=== PATIENT | female | born 1970 | race Caucasian/White ===

== ENCOUNTER 2017-09-29 15:29 | Day surgery (SDC) | payer OTHER ==
--- NOTE | 2017-09-12 06:23 | HP ---
CC: Marco Antonio Claudio MD, [facility] * HISTORY AND PHYSICAL: DATE OF ADMISSION/SURGERY: 09/29/17 PRIMARY CARE PHYSICIAN: Cass Blackwell MD ATTENDING SURGEON: Santos Laguna MD * (DICTATED BY KIM LOPEZ) CHIEF COMPLAINT: Recurrent metastatic melanoma. HISTORY OF PRESENT ILLNESS: Ms. Murphy is a pleasant 47-year-old female who is well known to our practice from prior excision of melanoma. 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 She eventually underwent wide excision of melanoma on her right upper back with sentinel lymph node dissection of the right axilla. She has been followed by the hematology/ oncology group, seeing Dr. Claudio on a regular basis. She has been seen by the oncology group and scheduled CT alternating with a PET scan to monitor her progress. She has been maintained on the chemotherapy for which she gets an infusion every 3 weeks. She reports being in her usual state of health and denies any constitutional symptoms recently. She had a recent PET scan that unfortunately revealed an enlarged lymph node in the right axilla. That was followed by fine needle aspiration of the lymph node that revealed metastatic melanoma. The patient was referred back to our office to discuss excision of lymph node. She has been doing extremely well otherwise and denies any fever, chills, night sweats or recent weight loss. She denies any skin changes, axillary swelling. She has a history of DVT on 2 separate occasions for which she started initially on warfarin that was changed to Xarelto which she has been taking on a regular basis. She denies any ankle swelling or shortness of breath. She was seen in the office today by Dr. Laguna and her PET scan was reviewed as well as the pathology report from the fine needle aspiration and recommendation was made for her to undergo an excision of right axillary lymph node in the operating room later this month. PAST MEDICAL HISTORY: As mentioned above. The patient has history of metastatic melanoma for which she had a wide excision as well as sentinel lymph node biopsy back in January 2016. She also had another excision done that was found to be melanoma of the lower right back. She also had history of morbid obesity and DVT. PAST SURGICAL HISTORY: As mentioned above. Significant for wide excision of melanoma of the right upper back at [facility] with sentinel lymph node biopsy that initially was negative. She has also had another melanoma excised from the right lower back. She is also status post a laparoscopic sleeve gastrectomy back in April 2016. She also had a minor varicose vein surgery and a laparoscopic cholecystectomy in the remote past. CURRENT MEDICATIONS: Her medications at home include: 1. Citalopram 40 mg p.o. daily. 2. Keytruda 100 mg 1 IV infusion every 3 weeks. 3. Calcium citrate 250 mg once daily. 4. Biotin 1000 mcg once a day. 5. Bryant chewable multivitamin once daily. 6. Xarelto 20 mg once daily. ALLERGIES: She has no known drug allergies. FAMILY HISTORY: She denies any family history of melanoma or colorectal malignancies. SOCIAL HISTORY: The patient denies smoking. She drinks wine rarely and caffeine intake is minimal. REVIEW OF SYSTEMS: See HPI, otherwise negative. She denies any headache, dizziness, blurred vision or double vision. No sore throat, cough, wheezing or shortness of breath. She denies any abdominal pain, hernias, back pain, hematuria, dysuria or urinary frequency. No fever, chills, night sweats or recent weight loss. PHYSICAL EXAMINATION GENERAL: She is a pleasant healthy-appearing middle aged female, in no acute distress or discomfort at her visit today. VITAL SIGNS: Her vitals revealed blood pressure 110/70, pulse 84, respirations of 18 and temperature 98.7. HEENT: Sclerae anicteric. PERRLA. EOM's intact. Oropharynx is pink and moist with no exudate. NECK: Supple. Trachea midline. No cervical adenopathy or thyromegaly. LUNGS: Clear to auscultation bilaterally. HEART: Regular rate and rhythm. Normal S1 and S2 without rubs, murmurs or gallops. BACK: Normal curvature. No CVA tenderness. There is a large well-healed scar at the right upper back from prior wide excision and sentinel lymph node biopsy back in January 2016. There is also a smaller scar on the right lower back from prior melanoma excision as an outpatient. There is different colored freckles noted in her upper shoulders, but nothing suspicious for a dysplastic nevi at this time. BREASTS: Exam deferred at this time. AXILLA: Right axilla was examined. There was no palpable lymphadenopathy noted. ABDOMEN: Soft, nontender, nondistended. No hernia, masses or hepatosplenomegaly. RECTAL: Exam deferred at this time. NEUROLOGIC: Grossly intact. IMPRESSION: A 47-year-old female with a positive recent PET scan for right axillary lymphadenopathy with history of metastatic malignant melanoma. PLAN: The patient was seen earlier today by Dr. Laguna. He advised her to undergo an excision of right axillary lymph node be performed at a later date. The rationale, indication, risks and benefits of surgery were discussed with her today. Risks include but not limited to infection, bleeding or injury to adjacent structures. She seems to understand and wishes to proceed as outlined. Given her history of deep venous thrombosis on 2 separate occasions, we will hold her Xarelto only for 24 hours prior to surgery, and we will follow her up accordingly. KIM LOPEZ [id number]/[facility] #: [id number] MAGALY
[~2017-09-29 15:29] MED LIST: Buffered Lidocaine 0.9% SYRIN* 5 ML/SYR SYRINGE INTRADERM ONE; Famotidine IV* 10 MG/ML 2 ML (20 mg) IV ONE
[2017-09-29] MEDS ORDERED: ceFAZolin 2 GM PREMIX (*) 2 GM/50 ML BAG IVPB ONE (15:33)
[2017-09-29] MEDS ORDERED: Famotidine IV* 10 MG/ML 2 ML (20 mg) ONE (15:33)
[2017-09-29] MEDS ORDERED: Heparin VIAL(*) 5000 UNITS/ML VIAL (FIVE THOUSAND) ONE (16:50)
[2017-09-29] MEDS ORDERED: Lidocaine 2% PF * 5 ML VIAL ONE (17:40)
[2017-09-29] MEDS ORDERED: Propofol* 10 MG/ML 20 ML BTL IV PUSH ONE (17:40)
[2017-09-29] MEDS ORDERED: Ondansetron INJ* 2 MG/ML VIAL ONE (17:40)
[2017-09-29] MEDS ORDERED: Ketorolac INJ* 30 MG/ML 1 ML VIAL ONE (17:40)
[2017-09-29] MEDS ORDERED: fentaNYL* 50 MCG/ML 2 ML VIAL (100 MCG VIAL) ONE (17:41)
[2017-09-29] MEDS ORDERED: Midazolam* 1 MG/ML 5 ML VIAL (5 MG) ONE (17:41)
[2017-09-29] MEDS ORDERED: Dexamethasone IV* 4 MG/ML 1 ML (4 MG) ONE (18:26)
[2017-09-29] MEDS ORDERED: Bupivacaine 0.25% SDV* 30 ML ONE (18:28)
[2017-09-29] MEDS ORDERED: Lidocaine 1% MPF wEPI 200,000* 30 ML SDV ONE (18:28)
[2017-09-29] MEDS ORDERED: fentaNYL* 50 MCG/ML 2 ML VIAL (100 MCG VIAL) IV PRN (19:12)
[2017-09-29] MEDS ORDERED: Ondansetron INJ* 2 MG/ML VIAL IV PRN (19:12)
[2017-09-29] MEDS ORDERED: Naloxone* 0.4 MG/ML 1 ML VIAL IV PRN (19:12)
[2017-09-29] MEDS ORDERED: oxyCODONE/Acetamin 5/325 MG* TAB PO PRN (19:12)
[2017-09-29 21:37] VITALS: BP 120/74
--- NOTE | 2017-09-30 12:49 | OP ---
CC: Dr. Santos Laguna; Dr. Collier; Dr. Blackwell; Dr. Claudio OPERATIVE REPORT: DATE OF OPERATION: 09/29/17 DATE OF : 66 SURGEON: Santos Laguna MD TORCH SOLDERER: Dulce España NP ANESTHESIOLOGIST: Andreas Willoughby MD ANESTHESIA: General anesthetic, local infiltration. PRE-OP DIAGNOSIS: Melanoma metastatic to axillary lymph nodes. POST-OP DIAGNOSIS: Melanoma metastatic to axillary lymph nodes. OPERATIVE PROCEDURE: Excision of right axillary lymph nodes. DESCRIPTION OF PROCEDURE: The patient was supine on the operating room table. After adequate general anesthetic, compression stockings, Lana Hugger warmer, and intravenous antibiotics, the right axilla was prepped with antiseptic and draped in a sterile fashion. Local infiltrative anesthesia was admi nistered. Approximately, a 5-cm incision was created and dissection carried down into the axillary t issue. There was little bit of scarring from the previous surgery, but it was not too bad. There was a large node of about 2.5 cm, which seemed to correspond to the area seen on CT scan and on the PET s can. This was somewhat adherent on to the thoracodorsal neurovascular bundle, but was taken off with out difficulty. Small branches were clipped and divided and the lymph node was sent in formalin for pathological evaluation. There were two other lymph nodes that were nearby that were somewhat enlarg ed and maybe slightly pigmented, so it was felt prudent to remove these as well. No other enlarged l ymph nodes could be identified. Hemostasis was good. Closure was accomplished using 3-0 and 5-0 Vicr yl followed by Steri-Strips. She tolerated the procedure well, was awakened, and brought to Recovery in good condition. No complications. No drains. Pathologic specimen as above. Sponge and instrum ent counts correct. Estimated blood loss less than 30 mL. [id number]/[facility] #: [id number]
== END 2017-09-29 20:54 | disposition home or self-care (01) ==
LOC: OR 15:29
PROVIDERS: ATTEND Surgery
DX: C77.3 Secondary and unspecified malignant neoplasm of axilla and upper limb lymph nodes (principal); C43.59 Malignant melanoma of other part of trunk; Z86.718 Personal history of other venous thrombosis and embolism; Z79.01 Long term (current) use of anticoagulants; F41.9 Anxiety disorder, unspecified; Z86.711 Personal history of pulmonary embolism
CPT/HCPCS: 81025; 88305; J0690; J1100; J1644; J1885; J2001; J2250; J2405; J2704; J3010

== ENCOUNTER 2017-11-10 06:15 | Day surgery (SDC) | payer OTHER ==
[~2017-11-10 06:15] MED LIST changes: +Famotidine IV* 10 MG/ML 2 ML (20 mg) ONE; +ceFAZolin 2 GM PREMIX (*) 2 GM/50 ML BAG IVPB ONE
[2017-11-10] MEDS ORDERED: Lidocaine 1% INJ* 10 MG/ML 30 ML SDV ONE (06:58)
[2017-11-10] MEDS ORDERED: Dexamethasone IV* 4 MG/ML 1 ML (4 MG) ONE (07:10)
[2017-11-10] MEDS ORDERED: Propofol* 10 MG/ML 20 ML BTL IV PUSH ONE (07:10)
[2017-11-10] MEDS ORDERED: Lidocaine 2% PF * 5 ML VIAL ONE (07:10)
[2017-11-10] MEDS ORDERED: fentaNYL* 50 MCG/ML 2 ML VIAL (100 MCG VIAL) ONE (07:11)
[2017-11-10] MEDS ORDERED: Midazolam* 1 MG/ML 5 ML VIAL (5 MG) ONE (07:11)
[2017-11-10] MEDS ORDERED: Midazolam* 1 MG/ML 2 ML VIAL (2 MG) ONE (07:37)
[2017-11-10] MEDS ORDERED: Ondansetron ODT TAB* 4 MG PO PRN (08:05)
[2017-11-10] MEDS ORDERED: Naloxone* 0.4 MG/ML 1 ML VIAL IV PRN (08:05)
[2017-11-10] MEDS ORDERED: oxyCODONE/Acetamin 5/325 MG* TAB PO PRN (08:05)
[2017-11-10] MEDS ORDERED: fentaNYL* 50 MCG/ML 2 ML VIAL (100 MCG VIAL) IV PRN (08:05)
[2017-11-10] MEDS ORDERED: Ibuprofen TAB* 600 MG PO ONE (08:28)
--- NOTE | 2017-11-10 08:57 | RAD ---
INDICATION: chest port placement COMPARISONS: None relevant TECHNIQUE: Fluoroscopy was provided for a vascular access procedure. Total fluoroscopy time is: 8 seconds FINDINGS: A single spot image demonstrates a right-sided chest port from a subclavian approach with the tip overlying the cavoatrial junction. IMPRESSION: FLUOROSCOPY WAS PROVIDED FOR A VASCULAR ACCESS PROCEDURE CPT II Codes: G9500
--- NOTE | 2017-11-10 08:59 | RAD ---
INDICATION: Central venous catheter placement COMPARISON: None TECHNIQUE: An AP portable view obtained at 0828 hours is submitted. FINDINGS: Bones/Soft Tissues: There are no acute bony findings. There is a right-sided Vxfjsr-b-Bevs catheter terminating in the superior vena cava. There clips right axillary region Cardiomediastinal: The cardiomediastinal silhouette is normal. Lungs: There are no infiltrates. There is no pneumothorax. Pleura: There are no pleural effusions. Other: None IMPRESSION: RIGHT-SIDED CENTRAL VENOUS CATHETER IN EXPECTED POSITION. LUNGS CLEAR.
[2017-11-10 09:02] VITALS: BP 116/74
--- NOTE | 2017-11-10 12:02 | OP ---
CC: Dr. Laguna; [facility] OPERATIVE REPORT: DATE OF OPERATION: 11/10/17 DATE OF : 66 SURGEON: Santos Laguna MD PORTABLE SAWMILL OPERATOR: None. ANESTHESIOLOGIST: Dr. Willoughby. ANESTHESIA: LMAC anesthesia. PRE-OP DIAGNOSIS: Melanoma. POST-OP DIAGNOSIS: Melanoma. OPERATIVE PROCEDURE: Placement of right subclavian 8-Romansh port. DESCRIPTION OF PROCEDURE: Patient was supine on the operating table. After adequate intravenous sed ation, compression stockings, Lana Hugger warmer and intravenous antibiotics, the chest and neck sanjuanita on were prepped with antiseptic, draped in a sterile fashion. Local infiltrative anesthesia was admi nistered and right subclavian incision was created approximately 3 cm in length. Inferior pocket was created. Subclavian venipuncture carried out and guidewire passed under fluoroscopic guidance. Cat heter passed through the peel-away introducer, measured and cut at 23 cm, attached to the port, which was sutured in the pocket with 2-0 Prolene. Pocket closed with 3-0 and 5-0 Vicryl followed by Steri -Strips. The port has good blood return and is flushed with saline and heparinized solution. The pa tient is brought to recovery in good condition. No complications. No drains. No pathologic specimen . Sponge and instrument counts correct. Estimated blood loss 5 mL. [id number]/[facility] #: [id number]
== END 2017-11-10 09:21 | disposition home or self-care (01) ==
LOC: OR 06:15
PROVIDERS: ATTEND Surgery
DX: C43.59 Malignant melanoma of other part of trunk (principal); C77.3 Secondary and unspecified malignant neoplasm of axilla and upper limb lymph nodes; Z86.718 Personal history of other venous thrombosis and embolism; Z86.711 Personal history of pulmonary embolism; Z79.01 Long term (current) use of anticoagulants; F41.9 Anxiety disorder, unspecified
CPT/HCPCS: 71045; 76000; 81025; C1788; J0690; J1100; J1642; J2250; J2704; J3010

== ENCOUNTER 2019-10-18 12:40 | Emergency (ER) | payer OTHER ==
[2019-10-18 12:52] VITALS: BP 142/70
--- NOTE | 2019-10-18 13:02 | UC ---
General HPI - HPI Summary HPI Summary: Here with left sided chest pain Last week - developed pain in her back behind shoulder blade, under left breast. Most severe with taking a deep breath. initially thought she pulled a muscle. Few days it got better, still there and with deep breath No shortness of breath. Avoiding taking deep breaths because it hurts. No fever No cough No ALAS No N/V/D Denies any exertional activity trying to reach under the couch to get her dogs ball PMHx Melanoma - Dr. Claudio - finished two year course of Ktruda in 04/14 Scans scheduled for October. Three month derm checks. Not active treatment Hx of PE - 15 years ago. Has been on Xarelto since - recently - last refill reduced xarelto 40 mg down to 20 mg daily. Has been on 20 mg dose for about a month. - History of Current Complaint Chief Complaint: UCChestPain Stated Complaint: LEFT SIDE CHEST/BACK PAIN Time Seen by Provider: 10/18/19 12:50 Pain Intensity: 7 - Allergy/Home Medications Allergies/Adverse Reactions: Allergies Allergy/AdvReac Type Severity Reaction Status Date / Time No Known Allergies Allergy Verified 10/18/19 12:48 Home Medications: Home Medications Citalopram TAB* [Celexa TAB*] 40 mg PO QPM 11/02/12 [History Confirmed 10/18/19] Rivaroxaban TAB(*) [Xarelto 20 mg] 20 mg PO QPM 03/29/16 [History Confirmed ] Multivit-Minerals/Folic Acid [Multivitamin Gummies Wome] 1 chw PO DAILY [History Confirmed 10/18/19] Calcium Citrate TAB* [Citracal TAB*] 1 tab PO DAILY 09/23/17 [History Confirmed 10/18/19] Cholecalciferol (Vitamin D3) [Vitamin D3] 2,000 units PO DAILY 09/23/17 [ History Confirmed 10/18/19] Cyanocobalamin TAB* [Vitamin B12 TAB*] 1,000 mcg PO DAILY 09/23/17 [History Confirmed 10/18/19] PMH/Surg Hx/FS Hx/Imm Hx Previously Healthy: Yes Cancer History: Other - melanoma Other History Of: Anticoagulant Therapy - coumadin for PE - Surgical History Surgical History: Yes Surgery Procedure, Year, and Place: WIDE EXCISION SKIN MELANOMA RIGHT UPPER BACK -[facility]-02/09. GALLBLADDER [id number]. POWER PORT. GASTRIC BYPASS 04/2016. LYMPH NODE REMOVAL -Rt AXILLARY. VERICOSE VEIN STRIPPING - Social History Alcohol Use: Occasionally Alcohol Amount: 1-2 per month Substance Use Type: None Smoking Status (MU): Never Smoked Tobacco Amount Used/How Often: 0.5-1 PPD X 5-6 YEARS Have You Smoked in the Last Year: No When Did the Patient Quit Smoking/Using Tobacco: 1998 - Immunization History Most Recent Influenza Vaccination: HAS NOT HAD Most Recent Tetanus Shot: UP TO DATE? Most Recent Pneumonia Vaccination: HAS NOT HAD Review of Systems All Other Systems Reviewed And Are Negative: Yes Cardiovascular: Positive: Chest Pain Physical Exam Triage Information Reviewed: Yes Appearance: Well-Appearing Vital Signs: Initial Vital Signs Temp 98.2 F 10/18/19 12:45 Pulse 64 10/18/19 12:45 Resp 16 10/18/19 12:45 BP 142/70 10/18/19 12:45 Pulse Ox 100 10/18/19 12:45 Vital Signs Reviewed: Yes Eyes: Positive: Conjunctiva Clear Neck: Positive: Supple Respiratory: Positive: Lungs clear, Normal breath sounds, Decreased breath sounds Cardiovascular: Positive: RRR, No Murmur Musculoskeletal: Positive: Other: - no reproducible tenderness Skin Exam: Other - no rash or lesion in area Course/Dx - Course Course Of Treatment: This is a 49 with PMhx of Melanoma not currently on treatment, recently lowered dose of xarelto presents with pleuritc pain, concern for a PE Vitals stable. EKG: NSR Recommend going directly to the ER - patient would like to go to [facility] for CTA Sign out given to Dr. Mancini Plan REcommend going directly to [facility] for CT angiogram of the chest to rule out a pulmonary embolism - Diagnoses Provider Diagnosis: Pleuritic chest pain Discharge ED - Sign-Out/Discharge Documenting (check all that apply): Patient Departure All imaging exams completed and their final reports reviewed: No Studies - Discharge Plan Condition: Fair Disposition: HOME-RECOMMEND TO ED Referrals: Cass Blackwell MD [Primary Care Provider] - Additional Instructions: REcommend going directly to [facility] for CT angiogram of the chest to rule out a pulmonary embolism - Billing Disposition and Condition Condition: FAIR Disposition: Home-Recommend to ED
--- OUTSIDE RECORDS SUMMARY | 2019-10-18 13:21 | XMS REPORT | Summary of Care ---
:1970 Author Organization [facility] Address [address] [facility] [place] [address] Care Team Providers Name Role Phone Cass Blackwell Primary Care Provider Reason for Visit Reason Comments Annual Well Visit Depression Encounter Details Date Type Department Care Team Description 10/01/2019 Office Visit [place] [facility] Cass Blackwell MD Depression, unspecified depression type (Primary Dx); Medicine [address] Malignant melanoma of back (HCC); [address] [place] [address] [place] [address] [phone] Allergies No Known Allergiesdocumented as of this encounter (statuses as of 10/01/2019) Medications Medication Sig Dispensed Refills Start Date End Date Status XARELTO 20 MG Oral take 1 tablet by 30 Tab 0 02/07/2017 Active TabIndications: Deep mouth once daily vein thrombosis (DVT) ([facility]), Other pulmonary embolism without acute cor pulmonale, unspecified chronicity ([facility]) Cholecalciferol Take by mouth. 0 Active (VITAMIN D3) 50 MCG (1999 UT) Oral Tab Cyanocobalamin Place under tongue. 0 Active (VITAMIN B-12) 1000 MCG Sublingual SL Tab Calcium 250 MG Oral Take by mouth. 0 Active Cap calciumcitrate 250mg citalopram (CELEXA) take 1 tablet by 30 Tab 0 09/03/2019 Active 40 MG Oral mouth once daily TabIndications: Depression, unspecified depression type citalopram (CELEXA) Take 1 Tab by mouth 90 Tab 3 10/01/2019 Active 20 MG Oral DAILY. Take 1/2 TabIndications: daily for 1 week Depression, then increase to 1 unspecified pill daily depression type documented as of this encounter (statuses as of 10/01/2019) Active Problems Problem Noted Date Family history of malignant neoplasm of digestive organs 05/07/2019 Other thrombophilia 05/07/2019 Urinary incontinence 05/07/2019 Excessive and frequent menstruation with regular cycle 05/07/2019 Depression 07/25/2018 Overview: Has tried on half dose- Will try again 07/15 Bariatric surgery status 07/25/2018 Overview: Sleeve- Cancer Survivorship 03/17/2016 Malignant melanoma of back 12/25/2015 Overview: Oncologic Diagnosis: Melanoma of Right Upper Back Date of Diagnosis: November 2015 Stage at Diagnosis: IIB Treatment to Date: 12/2015: Wide Excision of Melanoma Right Upper Back and B[place] Lymph Node Biopsy (-) Survivorship visit completed 03/17/2016 Anticoagulant long-term use 11/19/2015 BMI 50.0-59.9, adult 07/29/2015 Pulmonary embolism Overview: 2006 No underlying hypercoag But mantained on anticoag - Dr Claudio oversees - DVT (deep venous thrombosis) Overview: 2002 and 2006 First episode was on bcp - Second episode - Within 30 days of vein surgery - Has seen hematology and recommends life long anticoag documented as of this encounter (statuses as of 10/01/2019) Resolved Problems Problem Noted Date Resolved Date Malignant melanoma of skin 02/10/2016 03/17/2016 documented as of this encounter (statuses as of 10/01/2019) Social History Tobacco Use Types Packs/Day Years Used Date Former Smoker Quit: 06/27/1999 Smokeless Tobacco: Never Used Alcohol Use Drinks/Week oz/Week Comments Yes 1 Glasses of wine 1.0 Sex Assigned at Date Recorded Not on file documented as of this encounter Last Filed Vital Signs Not on filedocumented in this encounter Progress Notes Cass Blackwell MD - 10/01/2019 11:40 AM EDT NAME:Ronda Murphy 1970: 1970 ENC Date: 10/01/2019 CC:No chief complaint on file. Ronda Murphy is a 49-y.o. female Patient not seen by me since 07/15 - Diagnosed with maglignant melanoma with reoccurrence - following with oncology office - sees dermatology and oncology every 3 months- 2. History of depression- last seen was on clelexa for panic symptoms - which she continues she tried to get off but was not ablelast yr - and has run ou and had withdrawal effectcs - would like to consider reduction in dose again- 3. History of pulmonary embolis - / DVT - has been tested for presence of procoag condition and none was found - Dr Shanon spence - And has reduced the dose- Is considering weaning off medication - 4. History of bariatric surgery- discussed need for annual Current Outpatient Medications Medication Sig ? Calcium 250 MG Oral Cap Take by mouth. calciumcitrate 250mg ? Cholecalciferol (VITAMIN D3) 50 MCG (2000 UT) Oral Tab Take by mouth. ? citalopram (CELEXA) 20 MG Oral Tab Take 1 Tab by mouth DAILY. Take 1/2 daily for 1 week thenincrease to 1 pill daily ? citalopram (CELEXA) 40 MG Oral Tab take 1 tablet by mouth once daily ? Cyanocobalamin (VITAMIN B-12) [address] Tab Place under tongue. ? XARELTO 20 MG Oral Tab take 1 tablet by mouth once daily No current facility-administered medications for this visit. Patient Active Problem List Diagnosis Date Noted ? Family history of malignant neoplasm of digestive organs 05/07/2019 ? Other thrombophilia (HCC) 05/07/2019 ? Urinary incontinence 05/07/2019 ? Excessive and frequent menstruation with regular cycle 05/07/2019 ? Depression 07/25/2018 Has tried on half dose- Will try again 07/15 ? Bariatric surgery status 07/25/2018 Sleeve- ? Cancer Survivorship 03/17/2016 ? Malignant melanoma of back 12/25/2015 Oncologic Diagnosis: Melanoma of Right Upper Back Date of Diagnosis: November 2015 Stage at Diagnosis: IIB Treatment to Date: 12/2015: Wide Excision of Melanoma Right Upper Back and B[place] Lymph Node Biopsy (-) Survivorship visit completed 03/17/2016 ? Anticoagulant long-term use 11/19/2015 ? BMI 50.0-59.9, adult (HCC) 07/29/2015 ? Pulmonary embolism (HCC) 2006 No underlying hypercoag But mantained on anticoag - Dr Claudio oversees - ? DVT (deep venous thrombosis) (HCC) 2002 and 2006 First episode was on bcp - Second episode - Within 30 days of vein surgery - Has seen hematologyand recommends life long anticoag Family History Problem Relation Age of Onset ? Cancer Mother 62 esophogeal ? Alcohol/Drug Mother ? Cancer Father 75 lung cancer ? Ovarian Cancer Maternal Grandmother 74 No cardiopulmonary symptoms No upper or lower GI complaints No urinary tract symptoms. No bruising/ bleeding. No neurological complaints . No insomnia.+ . Social History Tobacco Use ? Smoking status: Former Smoker Last attempt to quit: 06/27/1999 Years since quittin.2 ? Smokeless tobacco: Never Used Substance Use Topics ? Alcohol use: Yes Alcohol/week: 1.0 standard drinks Types: 1 Glasses of wine per week ? Drug use: No OBJECTIVE: There were no vitals taken for this visit.. A/P ICD-9-CM ICD-10-CM 1. Depression, unspecified depression type 311 F32.9 citalopram (CELEXA) 20 MG Oral Tab 2. Malignant melanoma of back (HCC) 172.5 C43.59 3. Bariatric surgery status V45.86 Z98.84 There are no Patient Instructions on file for this visit. In our efforts to minimize the spread of COVID-19 in our community, amongst our patients, healthcarestaff and providers, we have implemented virtual visits with our patients. No vital signs, physical exam or in-office diagnostics were completed during this visit. These items may be accomplished during subsequent visits. AUTHOR: Cass Blackwell MD 11:56 10/01/2019 documented in this encounter Plan of Treatment Health Maintenance Due Date Last Done Comments CT Colonography 1970 Cologuard 1970 FIT/FOBT 1970 Sigmoidoscopy 1968 DTaP/Tdap/Td Vaccines (1 - 1979 Tdap) DEPRESSION SCREENING 1980 PAP SMEAR 1989 DIABETES SCREENING 01/13/2017 01/14/2016, 01/14/2016, 08/01/2015 ZOSTER IMMUNIZATION SERIES (1 2018 of 2) INFLUENZA VACCINE (Season 02/26/2020 Ended) MAMMOGRAM (SCREENING) 05/18/2020 05/18/2019, 05/18/2019, 11/16/2016 LIPID DISORDER SCREENING 08/01/2020 08/01/2015 Colonoscopy 07/03/2029 07/03/2019 Colorectal Cancer Screening 07/03/2029 HEPATITIS A IMMUNIZATION Aged Out No longer eligible based SERIES on patient's age to complete this topic HPV IMMUNIZATION SERIES Aged Out No longer eligible based on patient's age to complete this topic MENINGOCOCCAL VACCINE IMM Aged Out No longer eligible based on patient's age to complete this topic PNEUMOCOCCAL 0-64 YRS Aged Out No longer eligible based on patient's age to complete this topic documented as of this encounter Goals Goal Patient Goal Associated Recent Patient-Stated? Author Type Problems Progress Cancer Cancer Cancer No Myrna, Survivorship Care Survivorship Carl Marroquin PA-C Note: Survivorship Treatment Summary - Melanoma Stage IIB [facility] Stage IIB T4a Cancer Care Team: Surgeon: Dr. Huntley Surgical Physician Molecular Spectroscopist: Cara Norris PA-C Diagnosis and Staging : Date of diagnosis: November 2015 Primary site: Right Upper Back Clinical stage : T4s Surgery: Date: 01/26/16 Surgery: Wide excision, malignant melanoma of the right shoulder/back. Right axillary sentinel node biopsy. ? FOLLOW UP PLAN Post Treatment Surveillance Recommendations: - Follow up with Surgical Oncology every 6 months for 2 years then - Annually for Lifetime - Screening imaging every 6-[address] PET/CT for 2- 5 years - Establish care or Continue current visits with Environmental Analyst for Total Body Skin Exams every 3-6 months for 2 years following diagnosis. - Any unusual or changing skin lesions should be brought to the attention of your Dermatology Provider. - You may contact our office with concerning lesions for possible biopsy though this does not replace annual Total Body Skin Exams. - Routine blood tests are not recommended. PREVENTIVE HEALTH & CANCER SCREENING: -Maintain yearly appointments with PCP. Schedule of follow up Clinic Visits: - Surgical Oncology Dr. Huntley/Cara Norris PA-C [address] Surgical Oncology [place] [id number] - Dermatology [place] to Schedule Cara Norris PA-C documented as of this encounter Results Not on filedocumented in this encounter Visit Diagnoses Diagnosis Depression, unspecified depression type Malignant melanoma of back (HCC) Malignant melanoma of skin of trunk, except scrotum Bariatric surgery status documented in this encounter Insurance Payer Benefit Plan / Subscriber ID Effective Dates Phone Address Type Group [employer]CIAL [employer] [id number] 2012-Present [employer] Guarantor Name Account Type Relation to Date of Phone Billing Patient Address Ronda Murphy Personal/Family 1970 [id number] (Home) [place], [place] [phone] [id number] (Work) documented as of this encounter
== END 2019-10-18 13:21 | disposition home health service (06) ==
LOC: UCCORT 12:40
DX: R07.81 Pleurodynia (principal); Z86.711 Personal history of pulmonary embolism; Z79.01 Long term (current) use of anticoagulants; Z87.891 Personal history of nicotine dependence
CPT/HCPCS: 99212; G0463

== ENCOUNTER 2019-10-18 14:05 | Emergency (ER) | payer OTHER ==
--- NOTE | 2019-10-18 14:32 | ED ---
HPI Chest Pain - HPI Summary HPI Summary: 49-year-old female presents to the emergency department today with a chief complaint of left anterior chest pain 3 days which she describes as being located "occasionally in my left arm and left chest area" with associated shortness of breath due to pain with inspiration. Patient has a significant past medical history of myeloma however she has not received chemotherapy or radiation for years. Patient is followed by Dr. Claudio. Patient endorses a positive past medical history of blood clots and is currently on anticoagulation. Patient denies recent surgery, immobilization, long distance travel. She denies use of exogenous estrogen. Patient is otherwise well and denies fevers, abdominal pain, nausea, vomiting, diarrhea. Patient is being sent here from urgent care with concerns for possible blood clot. - History of Current Complaint Chief Complaint: EDShortnessOfBreath Time Seen by Provider: 10/18/19 14:17 Hx Obtained From: Patient Onset/Duration: Started Days Ago Timing: Constant Initial Severity: Mild Current Severity: Mild Pain Intensity: 4 Pain Scale Used: 0-10 Numeric Chest Pain Location: Left Anterior Chest Pain Radiates: No Character: Pressure/Squeezing Aggravating Factor(s): Deep Breaths Associated Signs and Symptoms: Positive: Shortness of Breath. Negative: Cough, Productive Cough, Nonproductive Cough - Additional Pertinent History Primary Care Physician: [id number] - Allergy/Home Medications Allergies/Adverse Reactions: Allergies Allergy/AdvReac Type Severity Reaction Status Date / Time No Known Allergies Allergy Verified 10/18/19 14:10 Home Medications: Home Medications Citalopram TAB* [Celexa TAB*] 20 mg PO DAILY 11/02/12 [History Confirmed ] Rivaroxaban TAB(*) [Xarelto 20 mg] 20 mg PO DAILY 03/29/16 [History Confirmed ] Multivit-Minerals/Folic Acid [Multivitamin Gummies Wome] 1 chw PO DAILY [History Confirmed 10/18/19] Calcium Citrate TAB* [Citracal TAB*] 1 tab PO DAILY 09/23/17 [History Confirmed 10/18/19] Cholecalciferol (Vitamin D3) [Vitamin D3] 2,000 units PO DAILY 09/23/17 [ History Confirmed 10/18/19] Cyanocobalamin TAB* [Vitamin B12 TAB*] 1,000 mcg PO DAILY 09/23/17 [History Confirmed 10/18/19] PMH/Surg Hx/FS Hx/Imm Hx Endocrine/Hematology History: Reports: Hx Anticoagulant Therapy - coumadin for PE Denies: Hx Diabetes Cardiovascular History: Reports: Other Cardiovascular Problems/Disorders - LEFT LEG DVT-~1999 Denies: Hx Hypertension, Hx Pacemaker/ICD Respiratory History: Reports: Hx Pulmonary Embolism - 2004- CURRENTLY ON XARELTO , Hx Sleep Apnea, Other Respiratory Problems/Disorders - PE - ON COUMADIN Denies: Hx Asthma GI History: Denies: Other GI Disorders History: Denies: Hx Renal Disease Musculoskeletal History: Denies: Other Musculoskeletal History Sensory History: Reports: Hx Contacts or Glasses - GLASSES Denies: Hx Hearing Aid Opthamlomology History: Reports: Hx Contacts or Glasses - GLASSES Neurological History: Denies: Other Neuro Impairments/Disorders Psychiatric History: Reports: Hx Anxiety - on meds Denies: Hx Panic Disorder - Cancer History Cancer Type, Location and Year: MELANOMA Hx Chemotherapy: Yes Hx Radiation Therapy: No Hx Palliative Cancer Treatment: No - Surgical History Surgery Procedure, Year, and Place: WIDE EXCISION SKIN MELANOMA RIGHT UPPER BACK -KHRIS-02/09. GALLBLADDER [id number]. POWER PORT. GASTRIC BYPASS 04/2016. LYMPH NODE REMOVAL -Rt AXILLARY. VERICOSE VEIN STRIPPING Hx Anesthesia Reactions: No Infectious Disease History: No Infectious Disease History: Denies: Traveled Outside the [place] in Last 30 Days - Social History Alcohol Use: Occasionally Alcohol Amount: 1-2 per month Substance Use Type: Reports: None Smoking Status (MU): Never Smoked Tobacco Amount Used/How Often: 0.5-1 PPD X 5-6 YEARS Have You Smoked in the Last Year: No Review of Systems Constitutional: Negative Eyes: Negative ENT: Negative Positive: Chest Pain Positive: Shortness Of Breath. Negative: Cough Gastrointestinal: Negative Genitourinary: Negative Musculoskeletal: Negative Skin: Negative Neurological/Mental Status: Negative Psychological: Normal All Other Systems Reviewed And Are Negative: Yes Physical Exam - Summary Physical Exam Summary: Patient appears to be no acute distress. Patient has no evidence of hypoxia or cyanosis. Patient is able to speak in full nonlabored and unbroken sentences. No wheezing noted. Patient has no ecchymosis or edema or pain with palpation of the calves bilaterally. Dorsalis pedis pulse 2+ bilaterally. Patient has full range of motion of the left upper extremity. Patient has subjective increase in pain with deep inspiratory effort. There is a port noted in The right chest. Triage Information Reviewed: Yes Vital Signs On Initial Exam: Initial Vitals Temp Pulse Resp BP Pulse Ox 98.2 F 85 19 136/85 97 10/18/19 14:06 10/18/19 14:06 10/18/19 14:06 10/18/19 14:06 10/18/19 14:06 Vital Signs Reviewed: Yes Appearance: Positive: Well-Appearing, No Pain Distress, Well-Nourished Skin: Positive: Warm, Skin Color Reflects Adequate Perfusion Eyes: Positive: EOMI, CLAIRE ENT: Positive: Hearing grossly normal Respiratory/Lung Sounds: Positive: Clear to Auscultation, Breath Sounds Present Cardiovascular: Positive: RRR, S1, S2 Abdomen Description: Positive: Nontender, Soft Bowel Sounds: Positive: Present Musculoskeletal: Positive: Strength/ROM Intact Neurological: Positive: Alert, Oriented to Person Place, Time, CN Intact II-III , Normal Gait, Facial Symmetry, Speech Normal Psychiatric: Positive: Normal, Affect/Mood Appropriate AVPU Assessment: Alert Procedures - Sedation Patient Received Moderate/Deep Sedation with Procedure: No Diagnostics - Vital Signs Vital Signs Temp Pulse Resp BP Pulse Ox 10/18/19 14:06 98.2 F 85 19 136/85 97 - Laboratory Result Diagrams: 10/18/19 14:39 10/18/19 14:39 Lab Statement: Any lab studies that have been ordered have been reviewed, and results considered in the medical decision making process. Chest Pain Course/Dx - Course Course Of Treatment: Patient was evaluated in the emergency department today due to shortness of breath and chest pain. Vitals noted and stable. Patient was afebrile and not tachycardic. Patient was sent here from urgent care with concerns of possible pulmonary embolism. EKG was done promptly which shows no evidence of STEMI. Normal sinus rhythm at a rate of 71 bpm. Normal axis, WA, QT interval. No T-wave inversions.Labs returned showing no leukocytosis with a white blood for count of 4.6. There are no significant electrolyte disturbances. Troponin 0.00. D-dimer 206, within normal limits. CTA of the chest was done to rule out pulmonary embolism and to investigate possible metastasis to patients past history of melanoma. CTA returned showing no pulmonary embolism, new small left pleural effusion and increased mediastinal lymph nodes. Patient appears to have no significant pathology that requires intervention at this time. Patient's pain appears to be benign and could be possibly musculoskeletal in origin. Patient discharged to outpatient follow-up with PCP for further evaluation and management. Patient is agreeable to this plan. - Chest Pain Differential Diagnosis/HQI/PQRI: Chest Wall, Pulmonary Embolism, Other: - MSK, metastasis - Diagnoses Provider Diagnoses: Atypical chest pain - Critical Care Time Critical Care Statement: Critical care time is provided exclusive of any time spent performing procedures. Discharge ED - Sign-Out/Discharge Documenting (check all that apply): Patient Departure - Discharge Plan Condition: Stable Disposition: HOME Patient Education Materials: Chest Pain (ED) Referrals: Cass Blackwell MD [Primary Care Provider] - 3 Days Additional Instructions: There is no evidence of pathology that requires intervention at this time. No evidence of blood clot. I'm not certain what is causing your pain however it could be musculoskeletal. Please follow-up with your primary care provider in 3 -5 days for further evaluation and management of your symptoms. Please return to this emergency department immediately should you develop any new or worsening symptoms. - Billing Disposition and Condition Condition: STABLE Disposition: Home - Attestation Statements Provider Attestation: I was available for consultation for this patient. I did not evaluate the patient or participate in any medical decision making or disposition decisions unless I am specifically named in the chart as having consulted on the patient. If I have consulted on the patient, please see my own ED note on the patient encounter. Alex Mancini MD
[2019-10-18 14:49] LABS: ABS Eosinophils 0.2 10^3/ul (0-0.6); ABS Lymphocytes 1.2 10^3/ul (1.0-4.8); ABS Monocytes 0.4 10^3/ul (0-0.8); ABS Neutrophils 2.7 10^3/ul (1.5-7.7); Hematocrit 38 % (35-47); Hemoglobin 12.8 g/dL (12.0-16.0); Mean Corpuscular HGB Conc 34 g/dL (31-36); Mean Corpuscular Hemoglobin 30 pg (27-31); Mean Corpuscular Volume 89 fL (80-97); Mean Platelet Volume 7.3 fL (7.4-10.4); Nucleated Red Blood Cells % 0.1; Platelet Count 188 10^3/uL (150-450); Red Blood Count 4.24 10^6 /uL (3.70-4.87); Red Cell Distribution Width 12 % (10-15); White Blood Count 4.6 10^3/uL (3.5-10.8)
[2019-10-18 15:07] LABS: Albumin 3.7 g/dL (3.2-5.2); Albumin/Globulin Ratio 1.4 (1-3); BUN/Creatinine Ratio 16.5 (8-20); C Reactive Protein 4.2 mg/L (<8.01); Calcium 8.9 mg/dL (8.6-10.3); EGFR African American 85.3 (>60); EGFR Non-African American 70.5 (>60); Globulin 2.6 g/dL (2-4); Potassium 3.7 mmol/L (3.5-5.0); Total Bilirubin 0.4 mg/dL (0.2-1.0); Total Protein 6.3 g/dL (6.4-8.9)
[2019-10-18] MEDS ORDERED: Iohexol 350* (CONTRAST) 500 ML MDV IV ONE (15:10)
[2019-10-18 16:42] VITALS: BP 124/72
== END 2019-10-18 16:41 | disposition home or self-care (01) ==
LOC: ED 14:05
DX: R07.89 Other chest pain (principal); R06.02 Shortness of breath; Z79.01 Long term (current) use of anticoagulants; Z86.711 Personal history of pulmonary embolism; F41.9 Anxiety disorder, unspecified; Z85.820 Personal history of malignant melanoma of skin; Z86.718 Personal history of other venous thrombosis and embolism
CPT/HCPCS: 36415; 71275; 80053; 84484; 85025; 85379; 86140; 93005; 99283